=== PATIENT | female | born 1995 | race Caucasian/White ===

== ENCOUNTER 2023-06-09 10:42 | Emergency (ER) | payer SELFPAY ==
[2023-06-09 10:46] VITALS: BP 142/79; PULSE 104; RESP 18; TEMP 37.2; O2SAT 98
--- NOTE | 2023-06-09 13:04 | ED.NEUROSD ---
HPI - Neuro Symptoms/Deficit General Chief Complaint: Back Pain/Injury Stated Complaint: numbness in left arm after lifting child Time Seen by Provider: 06/09/23 12:05 History of Present Illness HPI Narrative: Patient was picking up and putting her 3-year-old down when she started having pain that went through her 1st 3 fingers, and up her left arm on the radial side. Initially had numbness but now has sensation back with tingling at the tips. Became quite anxious and was worried she had a stroke or heart attack. Related Data Allergies Allergy/AdvReac Type Severity Reaction Status Date / Time penicillin G Allergy Anaphylaxis Verified 06/09/23 10:44 Review of Systems Review of Systems: CONST: No fever. HEENT: No sore throat C/V: Slight chest tightness RESP: No cough GI: No abdominal pain : No dysuria. M/S: Left arm pain. SKIN: No rash. NEURO: Numbness/tingling to left hand/arm PSYCH: Anxious Exam Narrative: EXAMINATION OF ORGAN SYSTEMS/BODY AREAS: Constitutional: Vital signs per nursing GENERAL:[No acute distress, non-toxic appearing.] HEAD: Normal with no signs of head trauma. EYES: EOMI, conjunctiva normal ENT: Hearing grossly intact LUNGS: Nonlabored breathing. HEART: [Regular rate and rhythm] ABD: Nondistended EXT: Normal range of motion; normal strength with flexion/extension and radial/ulnar deviations at the wrist, normal okay sign. +Alyssia's sign. Normal cap refill. SKIN: [No rashes or lesions.] NEURO: [Alert and oriented x 3.] PSYCH: Slightly anxious initially Course Vital Signs Vital signs: Vital Signs Temperature 98.9 F 06/09/23 10:46 Pulse Rate 104 H 06/09/23 10:46 Respiratory Rate 18 06/09/23 10:46 Blood Pressure 142/79 H 06/09/23 10:46 Pulse Oximetry 98 06/09/23 10:46 Oxygen Delivery Room Air 06/09/23 10:46 Temperature 98.9 F 06/09/23 10:46 Pulse Rate 104 H 06/09/23 10:46 Respiratory Rate 18 06/09/23 10:46 Blood Pressure 142/79 H 06/09/23 10:46 Pulse Oximetry 98 06/09/23 10:46 Oxygen Delivery Room Air 06/09/23 10:46 MDM - Neuro Symptoms/Deficit MDM Narrative Medical decision making narrative: Patient presenting left upper extremity numbness/tingling pain after lifting her baby with her left arm, essentially normal exam here other than some subjective tingling to the 1st 3 fingers. Overall exam and history consistent with radial tenosynovitis; extremely unlikely ACS or CVA without risk factors and exam is not consistent with that. She is instructed to keep her arm in a thumb spica splint when possible, she already has an orthopedist/neurologist/pain specialist that she is seeing, I have asked her to follow up with them. Instructed to also use NSAIDs and I will trial a course of steroids. Patient reassured and stable for discharge at this time. Discharge Plan Discharge Clinical Impression: De Quervain's syndrome (tenosynovitis) Patient Disposition: Home, Self-Care Condition: Stable Instructions: Antibiotic Form, De Quervain Disease (ED) Additional Instructions: Please follow up with your orthopedic doctor; you may benefit from steroid injections. Take the ibuprofen and use ice and keep your wrist in the splint as much as possible; try to avoid using your thumb or doing any heavy lifting with that hand. You can always return for any further issues. Prescriptions: New prednisone 20 mg tablet 40 mg PO DAILY 5 Days Qty: 10 0RF ibuprofen 600 mg tablet 600 mg PO TID PRN (Reason: fever or pain) Qty: 30 0RF Follow-up/Referrals: PHYSICIAN NOT ON STAFF,NONSTAFF [Non-Staff] -
== END 2023-06-09 12:56 | disposition home or self-care (01) ==
LOC: ANHED 12:36
PROVIDERS: Emergency Provider Emergency Medicine; PCP Internal Medicine
DX: E34.51 Complete androgen insensitivity syndrome (principal)
CPT/HCPCS: 99283

== ENCOUNTER 2023-07-13 09:07 | Emergency (ER) | payer SELFPAY ==
[2023-07-13 09:10] VITALS: BP 143/74; PULSE 77; RESP 20; TEMP 36.4; O2SAT 100
--- NOTE | 2023-07-13 09:53 | ED.URI ---
HPI - URI/Sore Throat General Chief Complaint: Upper Respiratory Infection Stated Complaint: throat/fever/cough Time Seen by Provider: 07/13/23 09:23 Source: patient, RN notes reviewed and old records reviewed Mode of arrival: ambulatory Limitations: no limitations History of Present Illness HPI Narrative: 28 year old female who presents to [facility] care with complaints of 2 week duration of cough, reports that she has not had a runny nose for past few day, has had sore throat for 3 day duration.Patient reports that she thinks that she may of had a fever last evening. Patient states that she had been taking Delsym for her cough without improvement. Patient reports no shortness of breath or any wheezing. with SAO2 100% on room air MD elicited complaint: cough and sore throat Severity: moderate Able to tolerate fluids by mouth: Yes Treatments prior to arrival: other (delsym) Related Data Allergies Allergy/AdvReac Type Severity Reaction Status Date / Time penicillin G Allergy Anaphylaxis Verified 06/09/23 10:44 Review of Systems Review of Systems: CONSTITUTIONAL: Denies malaise, chills, sweats, reports thinks fever last night fever. EYES: Denies visual changes, redness, or discharge. ENT: Reports rhinorrhea, congestion, sinus pain, otalgia and sore throat. CARDIOVASCULAR: Denies chest pain, palpitations, or edema. RESPIRATORY: Reports cough.? Denies dyspnea. GASTROINTESTINAL: Denies abdominal pain, nausea, vomiting, diarrhea SKIN: Denies rash or itching. MUSCULOSKELETAL: Denies myalgia. NEUROLOGIC: history of headache. All systems reviewed & are unremarkable except as noted in HPI and below PMFSH Past Medical History Medical History (Updated 07/14/23 @ 13:57 by Kailyn Garrett NP) Post-concussion headache Social History Social History (Updated 07/14/23 @ 13:51 by Kailyn Garrett NP) Smoking status: Never smoker Alcohol intake: current Alcohol use details: social Substance use type: does not use Living arrangements: with family Gender identity (if verbalized by the patient): Female Comments At time of signature, agree with nursing past medical, surgical, social and family history. There is no relevant family history pertinent to the presenting complaint Exam Narrative: GENERAL: Well-appearing, well-nourished, and in no acute distress. HEAD: Normocephalic EYES: PERRLA, conjunctivae clear ENT: Nares clear, turbinates edematous and erythematous, clear discharge. Mucous membranes moist. TM pearly noel with dull light reflex bilaterally; no tragal tenderness. Oropharynx erythematous without lesions. Tonsils not enlarged and without exudate, no drooling, no hoarseness, no trismus, uvula midline. post nasal drainage NECK: Supple. No lymphadenopathy CHEST: Clear to auscultation, breath sounds equal. No wheezing, rhonchi, rales, or stridor. No respiratory distress, speaks in full sentences.cough noted SAO2 100% on room air HEART: Regular rate and rhythm. No murmur heard. SKIN: Warm, dry, no rash. NEURO: Alert and oriented x3. PSYCH: Normal mood and affect Course Course Emergency Course: Patient is aware of diagnosis, understands and agrees to treatment plan.? Anticipatory guidance given.? Patient agrees to follow-up as directed and is aware of reasons to seek care at the emergency department. Portions of this record may have been created with voice recognition software Level of Care: Express Care Visit Vital Signs Vital signs: Vital Signs Temperature 36.4 C 07/13/23 09:10 Pulse Rate 77 07/13/23 09:10 Respiratory Rate 20 07/13/23 09:10 Blood Pressure 143/74 H 07/13/23 09:10 Pulse Oximetry 100 07/13/23 09:10 Oxygen Delivery Room Air 07/13/23 09:10 Temperature 36.4 C 07/13/23 09:10 Pulse Rate 77 07/13/23 09:10 Respiratory Rate 20 07/13/23 09:10 Blood Pressure 143/74 H 07/13/23 09:10 Pulse Oximetry 100 07/13/23 09:10 Oxygen
== END 2023-07-13 10:05 | disposition home or self-care (01) ==
PROVIDERS: Emergency Provider Registered Nurse; PCP Internal Medicine
DX: J32.9 Chronic sinusitis, unspecified (principal); R05.1 Acute cough
CPT/HCPCS: 87081; 87880; 99213; G0463

== ENCOUNTER 2023-11-15 17:12 | Emergency (ER) | payer OTHER, SELFPAY ==
--- NOTE | ~2023-11-15 | CT_ITS ---
CT abdomen pelvis w con Ordering provider: Jossie Jacobs MD History: 28 years Female with . pilonidal cyst infection, concern for deeper track . Comparison: None. Technique: CT abdomen and pelvis with IV and without oral contrast. Automated exposure control and it erative reconstruction technique were employed. The dose-length product was 1218.28 mGy-cm. 100 mL Om nipaque 350 was given IV. Findings: VISUALIZED LOWER CHEST: Normal. UPPER ABDOMINAL ORGANS: Liver: Hepatomegaly. Gallbladder: Contracted. Spleen: Normal. Stomach/duodenum: Normal. Pancreas: Normal. Adrenals: Normal. Kidneys: Tiny cyst in the right kidney upper pole. PELVIC ORGANS: The bladder is underfilled. Uterus: IUD is seen in the uterus. Tiny cyst in the right ovary measuring 1.8 cm. BOWEL AND MESENTERY: Colon: No evidence of diverticulitis. Normal appendix. Small Bowel: Normal. No obstruction. Peritoneum/mesentery: No free air or free fluid. No mesenteric lymphadenopathy. Small mesenteric lymp h nodes. RETROPERITONEUM: Normal aorta. No retroperitoneal lymphadenopathy. MUSCULOSKELETAL: Superficial soft tissues: Soft tissue density seen in the left renal area medially with a soft tissue this density measuring 2.3 x 1.3 cm. Which may be inflammatory mass but no definite collection seen. Clinical correlation advised. Soft tissue density is noted posterior to the sacrum is most likely in flammatory. Clinical correlation advised.. Otherwise, The superficial soft tissues are normal. Bones: Normal spine. IMPRESSION: 1. No evidence of appendicitis, diverticulitis or intestinal obstruction. 2. Soft tissue density seen medially in the left renal area suggestive of inflammatory mass with no definite collection. Soft tissue density also seen posterior to the sacrum which is most likely infla mmatory. Clinical evaluation advised. Reviewed, dictated and finalized at location A. IMPRESSION: 1. No evidence of appendicitis, diverticulitis or intestinal obstruction. 2. Soft tissue density seen medially in the left renal area suggestive of infl ammatory mass with no definite collection. Soft tissue density also seen supply aide ior to the sacrum which is most likely inflammatory. Clinical evaluation advise selene
--- NOTE | 2023-11-15 17:28 | ED.SKABFB ---
HPI - Skin/Abscess/Foreign Bdy General Chief complaint: Skin/Abscess/Foreign Body Stated complaint: cyst on tailbone with fever Time Seen by Provider: 11/15/23 17:21 History of Present Illness HPI narrative: Patient is a 28-year-old female presenting with concerns for infected pilonidal cyst. States that she had infected cyst about 6 years ago and had a complicated course that required surgery and wound VAC. states that she was doing well until about 7 months ago when she started to again experiencing an opening around this area. States that it has been draining now for the last several weeks despite taking p.o. antibiotics. States that she has been having low-grade fevers and she is concerned that the antibiotics are not working. Related Data Allergies Allergy/AdvReac Type Severity Reaction Status Date / Time penicillin G Allergy Anaphylaxis Verified 06/09/23 10:44 Review of Systems Review of Systems: All systems reviewed & are unremarkable except as noted in HPI and below PMFSH Past Medical History Medical History Post-concussion headache Social History Social History Smoking status: Never smoker Alcohol intake: current Alcohol use details: social Substance use type: does not use Living arrangements: with family Gender identity (if verbalized by the patient): Female Exam Narrative: GENERAL: Well-appearing, no acute distress, pleasant cooperative HEAD: Normocephalic, atraumatic. EYES: PERRLA and EOMI. ENT: Grossly unremarkable NECK: Supple. CHEST: Clear to auscultation. No respiratory distress. HEART: Regular rate and rhythm. ABDOMEN: Soft, nontender, nondistended RECTAL: scar tissue at superior aspect of gluteal cleft, small opening approximately 1cm inferiorly with packing in place, no surrounding redness, no drainage appreciated EXTREMITIES: Normal range of motion. SKIN: Warm, dry, no rash. NEURO: Alert and oriented x3. PSYCH: Normal mood and affect. Course Vital Signs Vital signs: Vital Signs Temperature 98.3 F 11/15/23 17:31 Pulse Rate 115 H 11/15/23 17:31 Respiratory Rate 20 11/15/23 17:31 Blood Pressure 155/85 H 11/15/23 17:31 Pulse Oximetry 96 11/15/23 17:31 Temperature 98.3 F 11/15/23 19:33 Pulse Rate 103 H 11/15/23 19:33 Respiratory Rate 15 11/15/23 19:33 Blood Pressure 147/95 H 11/15/23 19:33 Pulse Oximetry 99 11/15/23 19:33 MDM - Skin/Abscess/Foreign Bdy MDM Narrative Medical decision making narrative: 28-year-old female presenting with concerns for infected pilonidal cyst. Vitals are stable. Exam remarkable for the above. Blood work with white count of 11.7. Remainder blood work is unremarkable. CT abdomen pelvis shows area of inflammation in the medial aspect of the left lower back. There is also some inflammation posterior to the sacrum. There is no evidence of discrete fluid collection. She is already on Bactrim, will add Keflex for additional coverage. Patient already has appointment with her surgeon in 2 days. Strongly advised that she keep this follow-up closely. Also recommend PCP follow-up. Appropriate return precautions given. Discharged in stable condition. Differential Diagnosis Differential diagnosis: Likely abscess of skin or subcutaneous tissue, cellulitis and other (pilonidal cyst) Medical Records Attestation: I reviewed the patient's medical records. Lab Data Attestation: I reviewed the patient's lab results. 11/15/23 18:04 11/15/23 18:04 Labs: Lab Results 11/15/23 11/15/23 Range/Units 18:04 18:38 WBC 11.7 H (4.5-10.0) K/mm3 RBC 4.57 (4.2-5.4) M/mm3 Hgb 13.4 (12.0-15.0) g/dL Hct 39.7 (37.0-47.0) % MCV 86.9 (80-100) fl MCH 29.3 (26-34) pg MCHC 33.8 (32-36) g/dl RDW 13.5 (11.5-14.5) % Plt Count 366 (150-375) k/mm3 MPV 9.2
[2023-11-15 17:31] VITALS: BP 155/85; PULSE 115; RESP 20; TEMP 36.8; O2SAT 96
[2023-11-15] MEDS: KETOROLAC 15 MG/ML VIAL (*BKC) IV PUSH (18:09)
[2023-11-15] MEDS: SODIUM CHLORIDE 0.9% IV 1,000 ML 999 ML IV CONT (18:10)
[2023-11-15] MEDS: ACETAMINOPHEN 500 MG TABLET 1000 MG PO (18:10)
[2023-11-15 18:22] LABS: Basophils Absolute Auto 0.1 K/mm3 (0.0-0.1); Basophils Percent Auto 0.4 % (0.2-1.2); Eosinophils Absolute Auto 0.3 K/mm3 (0-0.3); Eosinophils Percent Auto 2.3 % (0-4.4); Hematocrit 39.7 % (37.0-47.0); Hemoglobin 13.4 g/dL (12.0-15.0); Immature Granulocyte Absolute 0.04 K/mm3 (0.00-0.031); Immature Granulocyte Percent A 0.3 % (0-0.5); Lymphocytes Absolute Auto 3.04 K/mm3 (0.9-3.2); Lymphocytes Percent Auto 25.9 % (18.3-44.2); Mean Corpuscular HGB Conc 33.8 g/dl (32-36); Mean Corpuscular Hemoglobin 29.3 pg (26-34); Mean Corpuscular Volume 86.9 fl (80-100); Mean Platelet Volume 9.2 fl (7.4-10.4); Monocytes Absolute Auto 0.6 K/mm3 (0.1-0.6); Monocytes Percent Auto 5.5 % (2.6-8.5); Neutrophils Absolute Auto 7.7 K/mm3 (1.3-6.7); Neutrophils Percent Auto 65.6 % (45.5-73.1); Platelet Count Result 366 k/mm3 (150-375); Red Blood Count 4.57 M/mm3 (4.2-5.4); Red Cell Distribution Width 13.5 % (11.5-14.5); White Blood Count 11.7 K/mm3 (4.5-10.0)
[2023-11-15 18:30] LABS: Potassium 4.1 mmol/L (3.4-5.0)
[2023-11-15 18:42] LABS: BEDSIDEPREGUCG Negative (Negative)
[2023-11-15 18:45] LABS: Alanine Aminotransferase 50 U/L (6-35); Albumin Level 4.3 g/dL (3.5-5.1); Alkaline Phosphatase 88 U/L (38-126); Anion Gap 7 mmol/L (4-12); Aspartate Amino Transferase 36 U/L (14-36); Bilirubin,Total 0.3 mg/dL (0.2-1.3); Blood Urea Nitrogen 13 mg/dL (7-17); Calcium 8.8 mg/dL (8.4-10.2); Carbon Dioxide 22 mmol/L (22-30); Chloride 102 mmol/L (98-107); Estimated CRCL calculation 86 ml/min; Estimated Glomerular Filt Rate > 60; Glucose 113 mg/dL (65-110); Sodium 131 mmol/L (137-145)
[2023-11-15 19:33] VITALS: BP 147/95; PULSE 103; RESP 15; TEMP 36.8; O2SAT 99
[2023-11-15] MEDS: CEPHALEXIN 500 MG CAPSULE PO (19:55)
== END 2023-11-15 20:09 | disposition home or self-care (01) ==
PROVIDERS: Emergency Provider Emergency Medicine; PCP Internal Medicine
DX: L05.91 Pilonidal cyst without abscess (principal)
CPT/HCPCS: 36415; 74177; 80053; 81025; 85025; 96361; 96374; 99284; A9270; J1885; J7030; Q9967

== ENCOUNTER 2024-12-28 10:10 | Emergency (ER) | payer BC, SELFPAY ==
[2024-12-28 10:12] VITALS: BP 137/83; PULSE 96; RESP 18; TEMP 36.4; O2SAT 99
--- NOTE | 2024-12-28 10:21 | ED_ITS ---
HPI - Female Genitourinary General Chief complaint: Urogenital-Female Stated complaint: ?UTI Time Seen by Provider: 12/28/24 10:30 Source: patient and RN notes reviewed Mode of arrival: ambulatory Limitations: no limitations History of Present Illness HPI Narrative: 29-year-old female presents concern for 2 day history of dysuria, bilateral flank pain, increased frequency. She reports hematuria. For she denies fever, body aches. Reports chills. She denies vomiting, reports nausea. MD elicited complaint: UTI Related Data Home Medications ?Medication ?Instructions ?Recorded ?Confirmed ?Last Taken ?Type Wellbutrin 12/28/24 Unknown History cariprazine 3 mg capsule (Vraylar) mg 12/28/24 Unknow n History esomeprazole magnesium 20 mg mg 12/28/24 Unknown Hist ory capsule,delayed release Allergies Allergy/AdvReac Type Severity Reaction Status Date / Time penicillin G Allergy Anaphylaxis Verified 12/28/24 10:20 Review of Systems Review of Systems: CONSTITUTIONAL: Denies malaise, chills, sweats, or fever. CARDIOVASCULAR: Denies chest pain, palpitations, or edema. RESPIRATORY: Denies cough or dyspnea. GASTROINTESTINAL: Denies abdominal pain, nausea, vomiting, diarrhea GENITOURINARY: Reports dysuria, frequency, suprapubic pressure, flank pain, hematuria. SKIN: Denies rash or itching. MUSCULOSKELETAL: Denies back pain or myalgia. All systems reviewed & are unremarkable except as noted in HPI and below PMFSH Past Medical History Medical History Post-concussion headache Social History Social History Smoking status: Never smoker Alcohol intake: current Alcohol use details: social Substance use type: does not use Living arrangements: with family Gender identity (if verbalized by the patient): Female Comments At time of signature, agree with nursing past medical, surgical, social and family history. There is no relevant family history pertinent to the presenting complaint Exam Narrative: GENERAL: Well-appearing, well-nourished, and in no acute distress. HEAD: Normocephalic. EYES: PERRLA, conjunctivae clear. NECK: Supple. No lymphadenopathy CHEST: Clear to auscultation. No respiratory distress. HEART: Regular rate and rhythm. ABDOMEN: Soft, nontender upon palpation, nondistended, no palpable or pulsatile masses, no guarding. No CVA tenderness SKIN: Warm, dry, no rash. NEURO: Alert and oriented x3. PSYCH: Normal mood and affect Course Course Emergency Course: Patient is aware of diagnosis, understands and agrees to treatment plan. Anticipatory guidance given. Patient agrees to follow-up as directed and is aware of reasons to seek care at the emergency department. Portions of this record may have been created with voice recognition software Level of Care: Express Care Visit Vital Signs Vital signs: Reviewed. MDM - Female Genitourinary MDM Narrative Medical decision making narrative: Exam findings and UA show no acute concerns or changes; patient is non-toxic appearing and is in no distress. Patient is appropriate for outpatient treatment and follow-up. Differential Diagnosis Differential diagnosis: Likely urinary tract infection and cystitis Critical Care Time Critical Care Time Critical Care Time: No Discharge Plan Discharge Clinical Impression: Urinary tract infection Patient Disposition: Home Condition: Stable Instructions: Antibiotic Form, Urinary Tract Infection in Women (ED) Additional Instructions: We will send a urine culture to the lab; if the culture identifies an organism that the prescribed antibiotic will not treat, you will receive a phone call from an urgent care staff member and an appropriate antibiotic will be prescribed. -Your symptoms should begin to improve within a day of starting antibiotics. But you should finish all the antibiotic pills you get. Otherwise your infection might come back. -Also recommend: increase water intake. Tylenol/ibuprofen as needed for pain or fever -Follow-up with your primary care provider for urine recheck or seek ER visit if condition worsens with high fever, nausea, vomiting and severe back pain. Patient Language: Gibraltarian Prescriptions: New sulfamethoxazole-trimethoprim 800-160 mg tablet 1 tablet PO Q12H 7 Days Qty: 14 0RF No Action esomeprazole magnesium 20 mg capsule,delayed release(DR/EC) Vraylar 3 mg capsule Wellbutrin Follow-up/Referrals: Yarely,Seble Campbell APRN [Primary Care Provider, Unknown] Stand Alone Forms: Work/School Release IP Time of Disposition: 10:34
[2024-12-28 10:41] LABS: EDUAAPPEAR Clear; EDUABILI Negative (Negative); EDUABLOOD 2+ (Negative); EDUACOLOR1 Yellow; EDUAGLUCOSE Negative (Negative); EDUAKETONE Negative (Negative); EDUALEUKO 1+ (Negative); EDUANITRATE Negative (Negative); EDUAPH 6.0; EDUAPROTEIN 1+ (Negative); EDUASPGRAVITY 1.030; EDUAUROBILI 0.2
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
--- OUTSIDE RECORDS SUMMARY | 2024-12-28 11:21 | XMS_ITS | Clinical Summary ---
Author Organization [facility] [employer] Address [address] [place] [address] Care Team Providers Care Production Support Consultant Name Role Phone Seble Pritchett Primary Care Provider [phone] Jessika Levine MD Unavailable Source Comments [facility],non-owned Affiliates and Associated Physician Practices is amultiple site organization consisting of ambulatory clinics and hospital sitesin [place], [place], [place] and [place]. This disclosure is being madepursuant to the Care Everywhere program and may not contain all information available regarding this patient. Last updated 17.[facility] Allergies Active Allergy Reactions Criticality Noted Date Comments Penicillins Anaphylaxis High 09/25/2011 Penicillins GI Discomfort 07/19/2024 Medications * This document contains information received from the source organization and may not represent a complete record from that organization. * Be aware that medications may not be up to date on this document. Alwaysverify current medications with the patient. Norethin-Eth Estrad-Fe Biphas (LO LOESTRIN FE PO) Take by mouth. Active lurasidone (Latuda) 20 MG tabletIndicatio ns:Mixed Bipolar Affective Disorder Take 1 (one) tablet by mouth daily with food Reasons: MIXED BIPOLAR AFFECTIVE DISORDER 30 tablet Active Additional Information Patient not taking.Reported on 09/12/2024 hydrOXYzine HCl (Atarax) 50 MG tabletIndicatio ns:Insomnia Take 1 (one) tablet by mouth at bedtime Reasons: Trouble Sleeping 30 tablet 4 Active Vraylar 3 MG capsule Take 1 (one) capsule by mouth once daily As Directed. 5 Active esomeprazole (NexIUM) 20 MG capsule 5 Active famotidine (Pepcid) 20 MG tablet 5 Active cariprazine (Vraylar) 3 MG capsule Take 1 (one) capsule by mouth every Thursday, Thursday & Thursday Every other day Active buPROPion SR 12hr (Wellbutrin-SR) 100 MG tablet Take 1 (one) tablet by mouth once daily Active esomeprazole (NexIUM) 40 MG capsule Take 1 (one) capsule by mouth daily before breakfast Active buPROPion SR 12hr (Wellbutrin-SR) 150 MG tablet Take 1 (one) tablet by mouth once daily Active naltrexone (Revia) 50 MG tablet Take 1 (one) tablet by mouth every morning 5 Active Active Problems No known active problems Family History Medical History Relation Name Comments Schizophrenia Brother 3 None Known Father Diabetes - Type 2 Mother None Known Sister 2 Relation Name Status Comments Brother 3 Father Alive Mother Alive Sister 2 Social History Tobacco Use Types Packs/Day Years Used Date Smoking Tobacco: Never Smokeless Tobacco: Never Tobacco Cessation:Counseling Given: Not Answered Alcohol Use Standard Drinks/Week Comments Yes 0 (1 standard drink = 0.6 oz pur e alcohol) social AUDIT-C Answer Date Recorded Q1: How often do you have a drink containing alc ohol? Monthly or less 08/22/2024 Q2: How many drinks containi ng alcohol do you have on a typical day when you are drinking? 3 or 4 08/22/2024 Q3: How often do you have si x or more drinks on one occasion? Never 08/22/2024 PHQ-2 Answer Date Recorded Patient Health Questionnaire-2 Score 0 07/19/2024 Education Answer Date Recorded What is the highest level of school you have completed or the highest degree you have received? 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 Not on file No t on file Not on file Last Filed Vital Signs Vital Sign Reading Time Taken Comments Blood Pressure 128/78 09/12/2024 2:21 PM CDT Pulse 79 08/22/2024 9:35 AM CDT Temperature 36.3 C (97.3 F) 08/22/2024 9:20 AM CDT Respiratory Rate 16 08/22/2024 9:35 AM CDT Oxygen Saturation 98% 08/22/2024 9:35 AM CDT Inhaled Oxygen Concentration - - Weight 102.5 kg (226 lb) 09/12/2024 2:21 PM CDT Height 157.5 cm (5' 2) 09/12/2024 2:21 PM CDT Body Mass Index 41.34 09/12/2024 2:21 PM CDT Plan of Treatment Health Maintenance Due Date Last Done Comments HIV SCREENING 2009 DTAP/TDAP/TD VACCINES (1 - Tdap) 2013 HEPATITIS B VACCINE (1 of 3 - 19+ 3-dose series) 2013 HPV VACCINE (1 - 3-dose SCDM series) 2021 COVID-19 VACCINE ( season) 2024 03/15/2021, 07/25/2020, 07/19/2020, Additional history exists INFLUENZA VACCINE (#1) 2024 , 12/21/2017, 12/20/2017, Additional history exists PAP with HPV 07/19/2029 07/19/2024 ZOSTER VACCINE (1 of 2) 01/07/2044 HEPATITIS C SCREENING Completed 04/29/2024 DEPRESSION SCREENING Completed 07/19/2024 HIB VACCINE Aged Out No longer eligi ble based on patient's age to complete this topic MENINGOCOCCAL (Group B) VACCINE SHARED DECISION-MAKING Aged Out No longer eligible based on patient's age to complete this topic MENINGOCOCCAL GROUPS A/C/Y/W VACCINE Aged Out No longer eligible based on patient's age to complete this topic PNEUMOCOCCAL VACCINE Aged Out No long er eligible based on patient's age to complete this topic Procedures Procedure Name Priority Date/Time Associated Diagnosis Comments PAP IG LB+CT+NG+TV+HPV APTIMA RFLX 16,18/45 Routine 07/19/2024 4:10 PM CDT Well woman exam with routine gynecological exam Special screening examination for human papillomavirus (HPV) from Last 3 Months or Most Recently Relevant to Health Maintenance Results * PAP IG LB+CT+NG+TV+HPV APTIMA RFLX 16,18/45 (07/19/2024 4:10 PM CDT) Diagnosis Comment [facility] ACCOUNT BILL Comment:NEGATIVE FOR INTRAEP ITHELIAL LESION OR MALIGNANCY. Specimen Adequacy Comment [facility] ACCOUNT BILL Comment: Satisfactory for evaluation. Endocervical and/or squamous metaplastic cells (endocervical component) are present. Clinician Provided ICD10 Comment [facility] ACCOUNT BILL Comment: Z01.419 Z11.51 Performed by Comment [facility] ACCOUNT BILL Comment:Anjana Viera, Cytol ogist (ASCP) Comment . [facility] ACCOUNT BILL Note Comment [facility] ACCOUNT BILL Comment: The Pap smear is a screening test designed to aid in the detection of premalignant and malignant conditions of the uterine cervix. It is not a diagnostic procedure and should not be used as the sole means of detecting cervical cancer. Both false-positive and false-negative reports do occur. IGLBP CPT Code Automation Comment [facility] ACCOUNT BILL Comment: This liquid based ThinPrep(R) pap test was screened with the use of an image guided system. Human papillomavirus Aptima Negative Negative [facility] ACCOUNT BILL Comment: This nucleic acid amplification test detects fourteen high-risk HPV types (16,18,31,33,35,39,45,51,52,56,58,59,66,68) without differentiation. HPV Genotype Reflexed Comment [facility] ACCOUNT BILL Comment:Criteria not met, HP V Genotype not performed. Chlamydia trachomatis VERENICE Negative Negative [facility] ACCOUNT BILL GC VERENICE Negative Negative [facility] ACCOUNT BILL Trichomonas vaginalis by VERENICE Negative Negative [facility] ACCOUNT BILL PART OF UTERINE CERVIX / Unknown 07/19/2024 4:10 PM CDT 07/19/2024 Comment:Cervix Release to pa eric Narrative [facility] ACCOUNT BILL - 07/21/2024 1:10 PM CDT Performed at: 01 - [facility] [address] [id number] [employer] Supervisor: Allison Dominguez MD, Phone: [phone] Performed at: 02 - [facility] [address] [place] [id number] [employer] Supervisor: Allison Dominguez MD, Phone: [phone] Specimen Comment: [id number] Specimen Comment: No. of containers..01 ThinPrep Vial us Ilene Garcia DO LAB - PATHOLOGY/CYTOLOGY ORDERAB LES Final Result [facility] ACCOUNT BILL [address] [place] [address] from Last 3 Months or Most Recently Relevant to Health Maintenance Insurance [facility] CIG CIGNA CIGNA CIGNA BEHAVIORAL HEALTH Care Teams Production Support Consultant Relationship Specialty Start Date End Date Seble Pritchett [address] [place] [address] PCP - General Tree Care Foreman 08/08/24 Jessika Levine MD [address] [place] [address] 08/08/24
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
--- OUTSIDE RECORDS SUMMARY | 2024-12-28 11:29 | XMS_ITS | Encounter Summary ---
Author Organization [facility] Address [address] [place] [address] Care Team Providers Care Accounting Software Specialist Name Role Phone Seble Pritchett RUG DYER Primary Care Provider [phone] Encounter Details Date Type Department Care Team (Late Contact Info) Description 07/05/2024 MyChart Message Enc [facility] [place] [address] [place], [place] [id number] Seble Pritchett, RUG DYER [address] [place] [address] Medical card? Social History Tobacco Use Types Packs/Day Years Used Date Smoking Tobacco: Never Passive Smoke Exposure: Never Smokeless Tobacco: Never Alcohol Use Standard Drinks/Week Comments Not Currently 0 (1 standard drink = 0.6 oz pur e alcohol) 3-4 drinks a month PHQ-2 Answer Date Recorded Patient Health Questionnaire-2 Score 3 04/29/2024 Comments No Sex and Gender Information Value Date Recorded Sex Assigned at Female 04/29/2024 8:27 AM TRADE RECRUITER Legal Sex Female 10:25 AM TRADE RECRUITER Gender Identity Female 04/29/2024 8:27 AM TRADE RECRUITER Sexual Orientation Straight 04/29/2024 8: 27 AM TRADE RECRUITER documented as of this encounter Plan of Treatment Upcoming Encounters Date Type Department Care Team (Late Contact Info) Description 01/05/2025 8:40 AM TRADE RECRUITER Office Visit [facility] [place] [address] [place] [phone] Kevin Rice MD [address] [place] [address] 01/24/2025 1:40 PM TRADE RECRUITER Office Visit [facility] [place] [address] [place] [address] Seble Pritchett, RUG DYER [address] [place] [address] documented as of this encounter Visit Diagnoses Not on filedocumented in this encounter Additional Health Concerns Assessment Noted Time PHQ-9 Depression Total Score: 11 04/29/ 025 10:44 AM TRADE RECRUITER documented as of this encounter Care Teams Accounting Software Specialist Relationship Specialty Start Date End Date Seble Pritchett RUG DYER [address] [place] [address] PCP - General NURSE PRACTITIONER 04/19/24 documented as of this encounter
--- OUTSIDE RECORDS SUMMARY | 2024-12-28 11:29 | XMS_ITS | Clinical Summary ---
Author Organization [facility] Address [address] [place] [address] Care Team Providers Care Chief Of Party Name Role Phone Yarely, Seble Adrian MIXING MACHINE OPERATOR Primary Care Provider [phone] Allergies Active Allergy Reactions Criticality Noted Date Comments Penicillins Anaphylaxis High 1994 Medications azelastine 0.1 % nasal sprayIndications :Left ear pain,Allergic rhinitis, unspecified seasonality, unspecified trigger 2 sprays by Nasal route 2 (two) times daily as needed for Rhinitis. Use in each nostril as directed 10 mL 3 5 Active famotidine (PEPCID) 20 MG tabletIndication s:Gastroesophage al reflux disease without esophagitis Take 1 tablet (20 mg total) by mouth daily as needed for Heartburn. 30 tablet 1 5 Active VRAYLAR 3 MG capsule Take 1 capsule (3 mg total) by mouth daily. 5 Active ondansetron (ZOFRAN) 4 MG tablet Take 1 tablet (4 mg total) by mouth daily. Active hydrOXYzine (ATARAX) 50 MG tablet Take 1 tablet (50 mg total) by mouth 3 (three) times daily as needed for Itching. Active esomeprazole (NEXIUM) 20 MG capsuleIndicatio ns:Gastroesophag eal reflux disease without esophagitis Take 1 capsule (20 mg total) by mouth every morning before breakfast. 90 capsule 1 5 Active cariprazine (VRAYLAR) 3 MG capsule Take 1 capsule (3 mg total) by mouth daily. 5 Active naltrexone-buPRO Pion ER (CONTRAVE) 12 hr tabletIndication s:Class 3 severe obesity without serious comorbidity with body mass index (BMI) of 40.0 to 44.9 in adult, unspecified obesity type (CMS/HCC) Take 1 tab by mouth 2 times daily x 1 week then 2 tabs in the AM and 1 tab PM x 1 week then 2 tabs by mouth twice daily. 120 tablet 3 Active Active Problems Problem Noted Date Diagnosed Date Hiatal hernia 10/24/2024 Weight gain 04/29/2024 Class 3 severe obesity witho ut serious comorbidity with body mass index (BMI) of 40.0 to 44.9 in adult, unspecified obesity type 04/29/2024 Candidal otitis externa 04/29/2024 Dizziness 04/29/2024 Bipolar 2 disorder 04/29/2024 Encounters Date Type Department Care Team Description 10/24/2024 9:40 AM CDT Office Visit [facility] [address] [place] [address] Seble Pritchett, NIRANJAN Physical 10/24/2024 Travel [facility] [address] [place] [address] Seble Pritchett, NIRANJAN Medication Request from Last 3 Months Immunizations Immunization Administration Dates Next Due Dtap (Acel-Immune) 12/17/1998 Dtp (Generic) 10/27/1995, 6,1994,04/01 HPV 08/05/2011,08/08/2010,03/13/2010 HPV4 (Gardasil) 09/21/2007 Hepatitis A (Havrix [address]) 12/23/2005, 006 Hepatitis B Pediatric 03/23/1995,1994,01/01 Hib (Generic) 10/27/1995, 6,1994,04/01 Influenza (Generic) 12/05/2016 Influenza Adult (Generic) 12/22/2019,12/21/2017 MMR (MMRII) 12/17/1998,09/20/1995 Meningococcal (Menactra) 08/08/2010,09/21/2007 PFIZER COVID-19 (ORIGINAL FO RMULATION, PURPLE CAP) mRNA, LNP-S, PF, 30 MCG/0.3 ML DOSE 07/19/2020,06/22/2020 Polio IPV (Ipol) 12/17/1998 Polio Opv (Generic) 10/27/1995, 6,1994,04/01 Tdap (Generic) 03/28/2020, 9,10/03/2016,04/15 Varicella (Varivax) 09/21/2007,12/17/1998 Family History Medical History Relation Comments Drug Abuse Father bipolar disorder Father Diabetes Maternal Aunt Miscarriages / Stillbirths Maternal Aunt Arthritis Maternal Grandmother Diabetes Maternal Grandmother Esophageal cancer Maternal Grandmother Stroke Maternal Grandmother carotid artery stenosis Maternal Grandmother Depression Mother Drug Abuse Mother bipolar disorder Mother Arthritis Paternal Grandfather COPD Paternal Grandfather Diabetes Paternal Grandfather Drug Abuse Paternal Grandfather Early Paternal Grandfather Stroke Paternal Grandfather Miscarriages / Stillbirths Sister Defects Neg Hx Relation Status Comments Father Maternal Aunt Maternal Grandmother Mother Paternal Grandfather Sister Social History Tobacco Use Types Packs/Day Years Used Date Smoking Tobacco: Never Passive Smoke Exposure: Never Smokeless Tobacco: Never Tobacco Cessation:Counseling Given: No Alcohol Use Standard Drinks/Week Comments Not Currently 0 (1 standard drink = 0.6 oz pur e alcohol) 3-4 drinks a month PHQ-2 Answer Date Recorded Patient Health Questionnaire-2 Score 3 04/29/2024 Comments No Sex and Gender Information Value Date Recorded Sex Assigned at Female 04/29/2024 8:27 AM CLAIMS ADJUSTER SUPERVISOR Legal Sex Female 10:25 AM CLAIMS ADJUSTER SUPERVISOR Gender Identity Female 04/29/2024 8:27 AM CLAIMS ADJUSTER SUPERVISOR Sexual Orientation Straight 04/29/2024 8: 27 AM CLAIMS ADJUSTER SUPERVISOR Last Filed Vital Signs Vital Sign Reading Time Taken Comments Blood Pressure 128/83 10/24/2024 9:41 AM CDT Pulse 103 10/24/2024 9:41 AM CDT Temperature 36.8 C (98.3 F) 10/24/2024 9:41 AM CDT Respiratory Rate 18 10/24/2024 9:41 AM CDT Oxygen Saturation 98% 10/24/2024 9:41 AM CDT Inhaled Oxygen Concentration - - Weight 105.1 kg (231 lb 9.6 oz) 10/24/2024 9:41 AM CDT Height 157.5 cm (5' 2) 10/24/2024 9:41 AM CDT Body Mass Index 42.36 10/24/2024 9:41 AM CDT Plan of Treatment Upcoming Encounters Date Type Department Care Team (Late st Contact Info) Description 01/05/2025 8:40 AM CLAIMS ADJUSTER SUPERVISOR [facility] [place] [address] [place] [address] Kevin Rice MD [address] [place] [address] 01/24/2025 1:40 PM CLAIMS ADJUSTER SUPERVISOR Office Visit [facility] [place] [address] [place] [address] Seble Pritchett, MIXING MACHINE OPERATOR [address] [place] [address] Health Maintenance Due Date Last Done Comments COVID-19 Vaccine ( season) 2024 03/15/2021, 07/19/2020, 06/22/2020 Influenza Adult (#1) 2024 12/22/2019, 12/21/2017, 12/05/2016 Annual Physical 10/24/2025 10/24/2024 Cervical Cancer Screening Pap Smear (Age 30 to 64) Every 3 Years 07/20/2027 07/19/2024, 07/02/2023 Cervical Cancer Screening Pap with HPV Testing (Age 30 to 64) Every 5 Years 07/19/2029 07/19/2024 Cervical Cancer Screening with HPV 07/19/2029 DTaP, Tdap and Td Vaccines (10 - Td or Tdap) 03/28/2030 03/28/2020, 06/03/2018, 10/03/2016, Additional history exists Hepatitis B Vaccines Completed 03/23/1995, 1994, 1994 Hepatitis A Vaccines Completed 12/23/2005, 04/15/19 06 Meningococcal Vaccine Completed 08/08/2010, 008 HPV Vaccines Completed 08/05/2011, 10/2010, 03/13/2010, Additional history exists Hepatitis C Completed 04/29/2024 PHQ-2 (Physician Epes) Completed 04/29/2024 Meningococcal B Vaccine Aged Out No l onger eligible based on patient's age to complete this topic Pneumococcal Vaccine: Pediatrics (0 to 5 Years) and At-Risk Patients (6 to 49 Years) Aged Out No longer eligible based on patient's age to complete this topic RSV Immunizations Under 20 Months Aged Out No longer eligible based on patient's age to complete this topic Medical Devices Implanted Type Area Assistant Women'S Soccer Coach Device Identifier Shelf Expiration Date Model / Serial / Lot Vega Cf Capsule Implanted:Qty: 1 on 07/29/2024 by Andrew Rangel DO at [facility] [id number] 12/06/2025 [id number] / / [id number] Procedures Procedure Name Priority Date/Time Associated Diagnosis Comments HEPATITIS C ANTIBODY Routine 04/29/2024 10:01 AM CLAIMS ADJUSTER SUPERVISOR Need for hepatitis C screening test from Last 3 Months or Most Recently Relevant to Health Maintenance Results * HEPATITIS C ANTIBODY ([facility] ONLY) (04/29/2024 10:01 AM CLAIMS ADJUSTER SUPERVISOR) HEPATITIS C AB NON-REACTI VE NON-REACT LURDES 04/29/2024 8:29 PM CLAIMS ADJUSTER SUPERVISOR [facility] Comment: ANTIBODIES TO HCV NOT DETECTED. DOES NOT EXCLUDE THE POSSIBILITY OF EXPOSURE TO HCV. 04/29/2024 10:0 1 AM CLAIMS ADJUSTER SUPERVISOR us Seble Pritchett NP LABORATORY Final Resul t [facility] [address] [place] [address], [id number] from Last 3 Months or Most Recently Relevant to Health Maintenance Insurance [employer] Care Teams Chief Of Party Relationship Specialty Start Date End Date Seble Pritchett, MIXING MACHINE OPERATOR [address] [place] [address] PCP - General NURSE PRACTITIONER 04/19/24
== END 2024-12-28 10:40 | disposition home or self-care (01) ==
PROVIDERS: Emergency Provider Nurse Practitioner; PCP Nurse Practitioner
DX: N39.0 Urinary tract infection, site not specified (principal)
CPT/HCPCS: 81003; 87077; 87086; 87186; 99213; G0463